=== PATIENT | female | born 1995 | race Caucasian/White ===

== ENCOUNTER 2020-09-26 09:15 | Inpatient (IN) | payer OTHER ==
[~2020-09-26] VITALS: Ht 165.1 cm; Wt 122.9 kg
--- NOTE | 2020-09-27 00:22 | NUR ---
PT WAS SWABBED FOR COVID 19
[2020-09-27] MEDS ORDERED: PRENATAL VITAM1 EACH PO (02:25)
--- NOTE | 2020-09-27 09:07 | PR ---
[facility] [address] [facility] [address] [place], [place] [address] Signed Progress Notes IP Datetime Report Generated by CPN: 09/27/2020 09:07 PROGRESS NOTES: [id number] Impression: Normal Progression of Labor Procedures: Artificial ROM Plan: Continue Present Management; Anticipate Vaginal Delivery VITAL SIGNS: [id number] Vital Signs: Reviewed; Within Normal Limits EXAM: [id number] Dilatation: 2.5 Effacement: 75 Station: -1 Contractions: every 2-4 minutes MEMBRANES: [id number] Membranes Status: Ruptured Comments: Doing well, would like Epidukral later FETUS A: [id number] FHR Baseline: 130 Variability: Moderate 6-25bpm Accelerations: 15X15 FETUS B: [id number] Signing Physician: Cosme Leslie MD Copies: ~ *Electronically Signed* 09/27/20906 COSME LESLIE MD PATIENT NAME: JAVIER BARR PROGRESS NOTE DATE OF : 95 PHYSICIAN: COSME LESLIE MD RPT #: [id number] REPORT IS CONFIDENTIAL AND NOT TO BE RELEASED WITHOUT AUTHORIZATION
--- NOTE | 2020-09-27 14:44 | PR ---
[facility] [address] [facility] [place], [place] [address] Signed Progress Notes IP Datetime Report Generated by CPN: 09/27/2020 14:44 PROGRESS NOTES: [id number] Impression: Normal Progression of Labor Other Impressions: Slow progression of labor Procedures: Artificial ROM Plan: Augmentation Informed Consent Obtain: Vaginal Delivery VITAL SIGNS: [id number] Vital Signs: Reviewed; Within Normal Limits EXAM: [id number] Dilatation: 3.5 Effacement: 80 Station: -2 Contractions: every 2-4 minutes MEMBRANES: [id number] Membranes Status: Ruptured Comments: Comfortable with Epidural (had to be redone). Contractions somewhat irregular and slow progress, so will start Low-dose Pitocin augmentation. FETUS A: [id number] FHR Baseline: 130 Variability: Moderate 6-25bpm Accelerations: 15X15 FETUS B: [id number] Signing Physician: Cosme Leslie MD Copies: ~ *Electronically Signed* 09/27/20 1444 COSME LESLIE MD PATIENT NAME: JAVIER BARR PROGRESS NOTE DATE OF : 95 PHYSICIAN: COSME LESLIE MD RPT #: [id number] REPORT IS CONFIDENTIAL AND NOT TO BE RELEASED WITHOUT AUTHORIZATION
--- NOTE | 2020-09-27 15:37 | PR ---
[facility] [address] [facility] [place], [place] [address] Signed Progress Notes IP Datetime Report Generated by CPN: 09/27/2020 15:37 PROGRESS NOTES: [id number] Impression: Normal Progression of Labor Other Impressions: Slow Progress Procedures: Intrauterine Pressure Catheter; Scalp Electrode Plan: Augmentation Informed Consent Obtain: Vaginal Delivery VITAL SIGNS: [id number] Vital Signs: Reviewed; Within Normal Limits EXAM: [id number] Dilatation: 4.0 Effacement: 80 Station: -2 Contractions: every 2-4 minutes MEMBRANES: [id number] Membranes Status: Ruptured Comments: Some late decles with Pitocin, but hard to follow, with wandering baseline, so Pitocin stopped. IUPC and FEKG applied; will watch, try to restart Pitocin augmentation, if inadequate contraction pattern. Watch FHR closely. FETUS A: [id number] FHR Baseline: 130 Variability: Moderate 6-25bpm Accelerations: 15X15 FETUS B: [id number] Signing Physician: Cosme Leslie MD Copies: ~ *Electronically Signed* 09/27/20 1537 COSME LESLIE MD PATIENT NAME: JAVIER BARR PROGRESS NOTE DATE OF : 95 PHYSICIAN: COSME LESLIE MD RPT #: [id number] REPORT IS CONFIDENTIAL AND NOT TO BE RELEASED WITHOUT AUTHORIZATION
--- NOTE | 2020-09-27 17:57 | PR ---
[facility] [address] [place], [place] [address] Signed Progress Notes IP Datetime Report Generated by KIMBERLYN: 09/27/2020 17:57 PROGRESS NOTES: [id number] Impression: Normal Progression of Labor Other Impressions: Slow progress Procedures: Intrauterine Pressure Catheter; Scalp Electrode Plan: Continue Present Management Informed Consent Obtain: Vaginal Delivery VITAL SIGNS: [id number] Vital Signs: Reviewed; Within Normal Limits EXAM: [id number] Dilatation: 4.5 Effacement: 80 Station: -1 Contractions: every 2-4 minutes MEMBRANES: [id number] Membranes Status: Ruptured Comments: Patient had late decel after starting Pitocin again, makeing some progress, but slow and contracitons not regular. Will continue monitoring, to see if will have adequate cervical change, but may need to try Pitocin again. Patient in High Fowlers position, has had several IV boluses. Will cocntinyue to monitor. FETUS A: [id number] FHR Baseline: 130 Variability: Moderate 6-25bpm Accelerations: 15X15 FETUS B: [id number] Signing Physician: Socrates Leslie MD Copies: ~ *Electronically Signed* 09/27/20 1750 SOCRATES LESLIE MD PATIENT NAME: JAVIER BARR PROGRESS NOTE DATE OF : 95 PHYSICIAN: SOCRATES LESLIE MD RPT #: [id number] REPORT IS CONFIDENTIAL AND NOT TO BE RELEASED WITHOUT AUTHORIZATION
--- NOTE | 2020-09-27 21:36 | PR ---
[facility] [address] [facility] [place], [place] [address] Signed Progress Notes IP Datetime Report Generated by CPN: 09/27/2020 21:36 PROGRESS NOTES: [id number] Impression: Normal Progression of Labor Other Impressions: Slow progress Procedures: Intrauterine Pressure Catheter; Scalp Electrode Plan: Continue Present Management Informed Consent Obtain: Vaginal Delivery VITAL SIGNS: [id number] Vital Signs: Reviewed; Within Normal Limits EXAM: [id number] Dilatation: 7.0 Effacement: 80 Station: -1 Contractions: every 2-4 minutes MEMBRANES: [id number] Membranes Status: Ruptured Comments: Comfortable after Epidural bollus. Try High Fowlers (possibly fetus is OP). Continue close monitoring. FETUS A: [id number] FHR Baseline: 130 Variability: Moderate 6-25bpm Accelerations: 15X15 FETUS B: [id number] Signing Physician: Cosme Leslie MD Copies: ~ *Electronically Signed* 09/27/20 213 COSME LESLIE MD PATIENT NAME: JAVIER BARR PROGRESS NOTE DATE OF : 95 PHYSICIAN: COSME LESLIE MD RPT #: [id number] REPORT IS CONFIDENTIAL AND NOT TO BE RELEASED WITHOUT AUTHORIZATION
--- NOTE | 2020-09-28 13:18 | PR ---
[facility] [address] [facility] [place] [address] Signed PP Progress Notes Datetime Report Generated by CPN: 09/28/2020 13:18 SUBJECTIVE: [id number] Pain: Within Normal Limits Nausea/Vomiting: Denies Vital Signs: [id number] Vital Signs: Reviewed; Within Normal Limits Notable Details: PP Hgb/Hct = 12.2/35.4 EXAM: Ongoing Abdomen/Uterus: Normal Lochia: Normal Extremities: Normal IMPRESSION/PLAN/PROCEDURES: [id number] Impression: Normal Progression Plan: Continue Present Management Procedures: None Progress Notes: Doing well, without complaint, up moving, voiding without difficulty. Signing Physician: Cosme Leslie MD Copies: ~ *Electronically Signed* 09/28/20 1318 COSME LESLIE MD PATIENT NAME: JAVIER BARR PROGRESS NOTE DATE OF : 95 PHYSICIAN: COSME LESLIE MD RPT #: [id number] REPORT IS CONFIDENTIAL AND NOT TO BE RELEASED WITHOUT AUTHORIZATION
--- NOTE | 2020-09-29 11:24 | PR ---
[facility] [address] [facility] [place] [address] Signed PP Progress Notes Datetime Report Generated by CPN: 09/29/2020 11:24 SUBJECTIVE: [id number] Pain: Within Normal Limits Nausea/Vomiting: Denies Vital Signs: [id number] Vital Signs: Reviewed; Within Normal Limits Notable Details: PP Hgb/Hct = 12.2/35.4 EXAM: Ongoing Abdomen/Uterus: Normal Lochia: Normal Extremities: Normal IMPRESSION/PLAN/PROCEDURES: [id number] Impression: Normal Progression Plan: Discharge Procedures: None Progress Notes: Doing well, without complaint, ready to go home. Signing Physician: Cosme Leslie MD Copies: ~ *Electronically Signed* 09/29/20 1124 COSME LESLIE MD PATIENT NAME: JAVIER BARR PROGRESS NOTE DATE OF : 95 PHYSICIAN: COSME LESLIE MD RPT #: [id number] REPORT IS CONFIDENTIAL AND NOT TO BE RELEASED WITHOUT AUTHORIZATION
== END 2020-09-29 12:00 | disposition home or self-care (01) | DRG 806 ==
LOC: FBC 09-27 00:06
PROVIDERS: ADMIT General Practice; ATTEND General Practice
PROC: 10E0XZZ Delivery of Products of Conception, External Approach (ICD-10-PCS; principal; 2020-09-27)
PROC: 10907ZC Drainage of Amniotic Fluid, Therapeutic from Products of Conception, Via Natural or Artificial Opening (ICD-10-PCS; 2020-09-27)
PROC: 10H07YZ Insertion of Other Device into Products of Conception, Via Natural or Artificial Opening (ICD-10-PCS; 2020-09-27)
PROC: 10H073Z Insertion of Monitoring Electrode into Products of Conception, Via Natural or Artificial Opening (ICD-10-PCS; 2020-09-27)
PROC: 3E0R3BZ Introduction of Anesthetic Agent into Spinal Canal, Percutaneous Approach (ICD-10-PCS; 2020-09-27)
PROC: 00HU33Z Insertion of Infusion Device into Spinal Canal, Percutaneous Approach (ICD-10-PCS; 2020-09-27)
PROC: 00HU33Z Insertion of Infusion Device into Spinal Canal, Percutaneous Approach (ICD-10-PCS; 2020-09-27)
PROC: 00PUX3Z Removal of Infusion Device from Spinal Canal, External Approach (ICD-10-PCS; 2020-09-27)
PROC: 3E0P7VZ Introduction of Hormone into Female Reproductive, Via Natural or Artificial Opening (ICD-10-PCS; 2020-09-27)
DX: O77.0 Labor and delivery complicated by meconium in amniotic fluid (principal); T85.620A Displacement of cranial or spinal infusion catheter, initial encounter; Z37.0 Single live birth; Z3A.37 37 weeks gestation of pregnancy; Z20.822 Contact with and (suspected) exposure to COVID-19; Y70.3 Surgical instruments, materials and anesthesiology devices (including sutures) associated with adverse incidents
CPT/HCPCS: 01960; 85027; A9270; C9803; J2001; J2405; J2590; J2795; J3010; U0003